=== PATIENT | male | born 1940 | race Caucasian/White ===

== ENCOUNTER 2019-08-26 10:06 | Inpatient (IN) | payer OTHER ==
[~2019-08-26] VITALS: Ht 177.8 cm; Wt 75.0 kg
[~2019-08-26 10:06] MED LIST: AMARYL4 MG PO; ASPIRIN ADULT L81 M1 PO; AUGMENTIN 875 M1 TAB PO; BACTROBAN OINT22 GM PO; BISOPROLOL FUMAR5 MG PO; BYSTOLIC5 MG PO; FLONASE0.05 MG/AC NS; HYDROCHLOROTHIA25 M1 PO; KEFTAB500 MG PO; METFORMIN1000 MG PO; NORTRIPTYLINE25 M1 PO; PRAVACHOL20 MG PO; QUINAPRIL10 MG PO; QUINAPRIL20 MG PO; QUINAPRIL40 MG PO; VICODIN 5-3001 EACH PO; VICODIN 500 MG-1 TAB PO; XARELTO20 M1 PO; ZOFRAN ODT4 MG PO
[2019-08-26 10:16] VITALS: BP 192/80
[2019-08-26 10:22] LABS: BASO % 0.7 % (0.0-1.0); EOS # 0.1 10*3/uL (0.0-0.4); EOS % 1.1 % (1.0-4.0); HEMATOCRIT 44.7 % (42.0-52.0); HEMOGLOBIN 14.9 g/dl (14.0-18.0); LYMPH # 1.8 10*3/uL (1.3-4.4); LYMPH % 32.4 % (27.0-41.0); MEAN CELL VOLUME 89.6 fl (80.0-94.0); MEAN CORPUSCULAR HGB 29.9 pg (27.0-31.0); MEAN CORPUSCULAR HGB CONC 33.3 g/dl (33.0-37.0); MONO # 0.5 10*3/uL (0.1-1.0); MONO % 8.7 % (3.0-9.0); NEUT # 3.1 10*3/uL (2.3-7.9); NEUT % 56.9 % (47.0-73.0); PLATELET COUNT AUTOMATED 209 10*3/uL (130-400); RED BLOOD COUNT 4.99 10*6/uL (4.50-5.90); RED CELL DISTRI WIDTH 13.1 % (0-14.5); WHITE BLOOD COUNT 5.5 10*3/uL (4.8-10.8)
[2019-08-26 10:28] VITALS: BP 180/70
[2019-08-26 10:34] LABS: ACT PARTIAL THROMBO TIME 27.7 SECONDS (20.0-32.1); INTERNATIONAL NORM RATIO 0.9 (2.0-3.5)
[2019-08-26 10:44] LABS: ALBUMIN 3.8 gm/dl (3.1-4.5); ALKALINE PHOSPHATASE 93 U/L (45-117); BUN 28 mg/dl (7-24); CHLORIDE 105 mmol/L (98-107); LIPASE 622 U/L (73-393); POTASSIUM 4.2 mmol/L (3.5-5.1); SGOT/AST 22 IU/L (3-35); SGPT/ALT 22 U/L (12-78); SODIUM 137 mmol/L (136-145); TOTAL PROTEIN 7.6 gm/dL (6.4-8.2)
[2019-08-26 10:47] LABS: TROPONIN I < 0.015 ng/ml (<0.045)
[2019-08-26 13:26] VITALS: BP 178/85
--- NOTE | 2019-08-26 14:00 | NUR ---
MSA 79, admitted to , under the services of TAM Bauer DO with a diagnosis of CHEST PAIN. Chief complaint is CHEST PAIN. Patient arrived via ambulatory from ER. Monitor applied. Initial assessment completed. Vital signs taken and recorded. TAM BAUER DO notified of admission to the unit. Orders received. See assessment for past medical history, medications and allergies. Patient and/or family oriented to unit. [facility] visitation policy reviewed. Clothing/patient valuable form completed. KAUSHIK HASSAN
[2019-08-26] MEDS ORDERED: INVOKANA100 M1 PO (15:01)
--- NOTE | 2019-08-26 15:33 | NUR ---
DR. ALEMAN'S ANSWERING SERVICE NOTIFIED OF CONSULT. SPOKE WITH DR. BURLESON. ORDERS OBTAINED AND ENTERED.
[2019-08-26 16:00] VITALS: BP 166/62
[2019-08-26 20:00] VITALS: BP 146/76
--- NOTE | 2019-08-26 21:18 | NUR ---
WALKING HALLS WITH EASE. NO SXS OF DISTRESS NOTED. NO COMPLAINTS VOICED.
[2019-08-27] VITALS: BP 134/64
--- NOTE | 2019-08-27 06:01 | NUR ---
TOLERATED ROUTINE MEDS WELL WHOLE WITH WATER. NO COMPLAINTS VOICED. CALL LIGHT WITHIN REACH.
[2019-08-27 06:15] LABS: BASO % 0.4 % (0.0-1.0); EOS # 0.1 10*3/uL (0.0-0.4); HEMATOCRIT 42.4 % (42.0-52.0); HEMOGLOBIN 14.1 g/dl (14.0-18.0); LYMPH # 1.7 10*3/uL (1.3-4.4); LYMPH % 36.8 % (27.0-41.0); MEAN CELL VOLUME 88.3 fl (80.0-94.0); MEAN CORPUSCULAR HGB 29.4 pg (27.0-31.0); MEAN CORPUSCULAR HGB CONC 33.3 g/dl (33.0-37.0); MEAN PLATELET VOLUME 10.1 fl (9.6-12.3); MONO # 0.5 10*3/uL (0.1-1.0); MONO % 11.5 % (3.0-9.0); NEUT # 2.2 10*3/uL (2.3-7.9); NEUT % 49.1 % (47.0-73.0); PLATELET COUNT AUTOMATED 211 10*3/uL (130-400); RED CELL DISTRI WIDTH 13.2 % (0-14.5); WHITE BLOOD COUNT 4.5 10*3/uL (4.8-10.8)
[2019-08-27 06:40] LABS: BUN 23 mg/dl (7-24); CHLORIDE 106 mmol/L (98-107); CHOLESTEROL 251 mg/dL (<200); CREATININE 0.97 mg/dL (0.70-1.30); PHOSPHOROUS 3.1 mg/dL (2.5-4.9); POTASSIUM 3.7 mmol/L (3.5-5.1); SODIUM 137 mmol/L (136-145); TRIGLYCERIDES 200 mg/dl (<150); VLDL CHOLESTEROL 40 mg/dL (6-40)
[2019-08-27 06:50] LABS: HDL CHOLESTEROL 52 mg/dl (40-60); LDL CHOLESTEROL 159 mg/dL (9-159)
[2019-08-27 06:58] LABS: ACT PARTIAL THROMBO TIME 29.7 SECONDS (20.0-32.1)
[2019-08-27 07:29] LABS: VITAMIN D, 25-HYDROXY 20.8 ng/mL (30-100)
[2019-08-27 08:00] VITALS: BP 133/69
--- NOTE | 2019-08-27 08:00 | NUR ---
BEDSIDE REPORT RECIEVED FROM ANDRE RN. PT AWAKE, ALERT AND ORIENTED. NO STATED COMPLAINTS. NO S/S OF DISTRESS. WILL CONTINUE TO MONITOR.
--- NOTE | 2019-08-27 09:30 | NUR ---
IN TO ROOM. PT AWAKE, ALERT, ORIENTED. PLEASANT AND COOPERATIVE WITH ASSESSMENT. NO S/S OF DISTRESS AT THIS TIME. RESPIRATIONS ARE EASY AND REGULAR. DENIES ANY KIND OF PAIN AT THIS TIME. BED IN LOWEST LOCKED POSITION AND AND CALL LIGHT WITHIN REACH. WILL CONTINUE TO MONITOR.
[2019-08-27 12:00] VITALS: BP 118/65
[2019-08-27] MEDS ORDERED: CALCIUM 600 +1 EA11 PO (12:11)
[2019-08-27] MEDS ORDERED: ELIQUIS5 M1 PO (12:11)
[2019-08-27] MEDS ORDERED: NATURE'S BLEND F1 MG PO (12:11)
--- NOTE | 2019-08-27 14:52 | NUR ---
Discharge instructions reviewed with patient/family. Patient receptive and verbalizes understanding. Follow-up care arranged. Written instructions given to patient/family. KAUSHIK HASSAN
== END 2019-08-27 14:52 | disposition home or self-care (01) | DRG 310 ==
LOC: ED 10:06 → 4E 11:19 → EDHOLD 11:19 → 4E 13:33
PROVIDERS: Emergency Medicine; Internal Medicine; Nurse Practitioner Family; ADMIT Internal Medicine
DX: R00.2 Palpitations (principal); R07.89 Other chest pain; I16.0 Hypertensive urgency; R74.8 Abnormal levels of other serum enzymes; K21.9 Gastro-esophageal reflux disease without esophagitis; K57.90 Diverticulosis of intestine, part unspecified, without perforation or abscess without bleeding; Z66 Do not resuscitate; Z51.5 Encounter for palliative care; I10 Essential (primary) hypertension; E78.5 Hyperlipidemia, unspecified; E11.65 Type 2 diabetes mellitus with hyperglycemia; I48.91 Unspecified atrial fibrillation; E83.39 Other disorders of phosphorus metabolism; E53.8 Deficiency of other specified B group vitamins; Z90.49 Acquired absence of other specified parts of digestive tract; Z82.49 Family history of ischemic heart disease and other diseases of the circulatory system; Z80.8 Family history of malignant neoplasm of other organs or systems; Z79.899 Other long term (current) drug therapy; Z79.82 Long term (current) use of aspirin

== ENCOUNTER → 2019-09-09 | Outpatient (CLI) | payer OTHER ==
[~2019-09-09] MED LIST changes: +CALCIUM 600 +1 EA11 PO; +ELIQUIS5 M1 PO; +INVOKANA100 M1 PO; +NATURE'S BLEND F1 MG PO
== END | disposition home or self-care (01) ==
LOC: RESCLI 00:53
DX: E78.5 Hyperlipidemia, unspecified (principal); I48.91 Unspecified atrial fibrillation; I10 Essential (primary) hypertension; E11.9 Type 2 diabetes mellitus without complications; K21.9 Gastro-esophageal reflux disease without esophagitis; E55.9 Vitamin D deficiency, unspecified; Z79.899 Other long term (current) drug therapy

== ENCOUNTER → 2019-10-11 | Outpatient (CLI) | payer OTHER | END | disposition home or self-care (01) | LOC: RESCLI 00:11 | DX: E78.5 Hyperlipidemia, unspecified (principal); I48.91 Unspecified atrial fibrillation; I10 Essential (primary) hypertension; E11.9 Type 2 diabetes mellitus without complications; K21.9 Gastro-esophageal reflux disease without esophagitis; E55.9 Vitamin D deficiency, unspecified; Z79.899 Other long term (current) drug therapy ==

== ENCOUNTER → 2019-12-22 | Outpatient (CLI) | payer OTHER | END | disposition home or self-care (01) | LOC: RESCLI 00:47 | DX: I48.91 Unspecified atrial fibrillation (principal); E78.5 Hyperlipidemia, unspecified; I10 Essential (primary) hypertension; E11.9 Type 2 diabetes mellitus without complications; K21.9 Gastro-esophageal reflux disease without esophagitis; E55.9 Vitamin D deficiency, unspecified; Z79.899 Other long term (current) drug therapy ==

== ENCOUNTER → 2020-06-22 | Outpatient (CLI) | payer OTHER | END | disposition home or self-care (01) | LOC: RESCLI 01:52 | DX: I10 Essential (primary) hypertension (principal); E11.9 Type 2 diabetes mellitus without complications; I48.91 Unspecified atrial fibrillation; E53.8 Deficiency of other specified B group vitamins; E78.5 Hyperlipidemia, unspecified; B34.9 Viral infection, unspecified; Z79.899 Other long term (current) drug therapy ==

== ENCOUNTER → 2021-05-20 | Outpatient (CLI) | payer OTHER | END | disposition home or self-care (01) | LOC: US 14:50 | PROVIDERS: ATTEND Internal Medicine | DX: I65.23 Occlusion and stenosis of bilateral carotid arteries (principal) ==

== ENCOUNTER → 2023-03-12 | Outpatient (CLI) | payer OTHER ==
[2023-03-12 10:28] LABS: BASO % 0.7 % (0.0-1.0); EOS # 0.1 10*3/uL (0.0-0.4); EOS % 3.2 % (1.0-4.0); HEMATOCRIT 43.4 % (42.0-52.0); LYMPH # 1.6 10*3/uL (1.3-4.4); LYMPH % 36.8 % (27.0-41.0); MEAN CORPUSCULAR HGB 29.5 pg (27.0-31.0); MEAN CORPUSCULAR HGB CONC 33.9 g/dl (33.0-37.0); MEAN PLATELET VOLUME 9.2 fl (9.6-12.3); MONO # 0.5 10*3/uL (0.1-1.0); MONO % 11.7 % (3.0-9.0); NEUT # 2.1 10*3/uL (2.3-7.9); NEUT % 47.1 % (47.0-73.0); PLATELET COUNT AUTOMATED 220 10*3/uL (130-400); RED BLOOD COUNT 4.99 10*6/uL (4.50-5.90); RED CELL DISTRI WIDTH 12.9 % (0-14.5); WHITE BLOOD COUNT 4.4 10*3/uL (4.8-10.8)
[2023-03-12 10:57] LABS: FREE T4 0.96 ng/dl (0.89-1.76); POTASSIUM 4.2 mmol/L (3.4-5.1); THYROID STIM HORMONE (HS) 2.777 uIU/ml (0.550-4.780); TOTAL PROTEIN 7.2 gm/dL (6.0-8.0)
[2023-03-12 11:09] LABS: VITAMIN D, 25-HYDROXY 22.9 ng/mL (30-100)
== END | disposition home or self-care (01) ==
LOC: LAB 10:02
PROVIDERS: ATTEND Internal Medicine
DX: E11.65 Type 2 diabetes mellitus with hyperglycemia (principal); I10 Essential (primary) hypertension; D64.9 Anemia, unspecified; E55.9 Vitamin D deficiency, unspecified; Z13.0 Encounter for screening for diseases of the blood and blood-forming organs and certain disorders involving the immune mechanism; Z13.1 Encounter for screening for diabetes mellitus; Z13.21 Encounter for screening for nutritional disorder; Z13.220 Encounter for screening for lipoid disorders; Z13.228 Encounter for screening for other metabolic disorders; Z13.29 Encounter for screening for other suspected endocrine disorder; Z13.6 Encounter for screening for cardiovascular disorders; Z13.89 Encounter for screening for other disorder; Z13.9 Encounter for screening, unspecified

== ENCOUNTER → 2023-03-17 | Outpatient (CLI) | payer OTHER | END | disposition home or self-care (01) | LOC: US 01:07 | PROVIDERS: ATTEND Internal Medicine | DX: I73.9 Peripheral vascular disease, unspecified (principal) ==